=== PATIENT | male | born 1985 | race Caucasian/White ===

== ENCOUNTER 2022-11-15 07:40 | Outpatient (CLI) | payer OTHER, SELFPAY ==
--- NOTE | 2022-11-15 08:00 | CRLHL7_ITS ---
For Patients: As a result of the Century Cures Act, medical imaging exams and procedure reports are released immediately into your electronic medical record. You may view this report before your referring provider. If you have questions, please contact your health care provider. INDICATION: Hematuria. TECHNIQUE: CT abdomen and pelvis urogram without and with 95 cc Isovue 370 contrast. Contrast images were obtained in the nephrographic and delayed phases. COMPARISON: None. FINDINGS: KIDNEYS: The unenhanced images demonstrate no kidney or ureteral stones. The kidneys are normal in caliber and demonstrate normal uptake and excretion of IV contrast. No masses. The renal collecting systems and ureters are symmetrical, normal in caliber, and without evidence of mass or filling defect. URINARY BLADDER: The urinary bladder is normal in caliber and without evidence of mass, wall thickening, or inflammation. OTHER: GI tract is normal in caliber and appearance. The liver is normal in caliber and attenuation. Postop changes cholecystectomy and appendectomy. Spleen, pancreas, and adrenal glands are normal. No mass or adenopathy. Osseous structures normal. Lung bases clear. IMPRESSION: 1. Unremarkable CT urogram. No findings to explain hematuria. 2. No other acute or significant findings. Please note that all CT scans at this facility use dose modulation, iterative reconstruction, and/or weight-based dosing when appropriate to reduce radiation dose to as low as reasonably achievable. Dictated by Luis Morfin MD @ 11/15/2022 2:51:56 PM (Electronically Signed)
== END 2022-11-15 07:41 | disposition home or self-care (01) ==
LOC: CT 07:40
PROVIDERS: PCP Family Medicine; Visit Provider Family Medicine
DX: R31.9 Hematuria, unspecified (principal)
CPT/HCPCS: 74178; Q9967

== ENCOUNTER 2023-01-10 11:30 | Outpatient (CLI) | payer OTHER, SELFPAY | END 2023-01-10 11:31 | disposition home or self-care (01) | PROVIDERS: PCP Family Medicine; Visit Provider Family Medicine | DX: I10 Essential (primary) hypertension (principal); E78.5 Hyperlipidemia, unspecified; Z13.1 Encounter for screening for diabetes mellitus | CPT/HCPCS: 80048; 80061 ==

== ENCOUNTER 2023-09-12 07:29 | Outpatient (CLI) | payer OTHER, SELFPAY | END 2023-09-12 07:30 | disposition home or self-care (01) | LOC: NFLDREF 09-13 07:07 | PROVIDERS: PCP Family Medicine; Referring Provider Family Medicine; Visit Provider Family Medicine | DX: Z00.00 Encounter for general adult medical examination without abnormal findings (principal); E13.9 Other specified diabetes mellitus without complications; Z13.89 Encounter for screening for other disorder | CPT/HCPCS: 87086 ==

== ENCOUNTER 2024-10-22 08:22 | Outpatient (CLI) | payer OTHER, SELFPAY | END 2024-10-22 08:23 | disposition home or self-care (01) | PROVIDERS: PCP Family Medicine; Visit Provider Family Medicine | DX: E78.2 Mixed hyperlipidemia (principal); I10 Essential (primary) hypertension | CPT/HCPCS: 80048; 80061 ==

== ENCOUNTER 2025-04-12 18:40 | Outpatient (CLI) | payer OTHER, SELFPAY | END 2025-04-12 18:41 | disposition home or self-care (01) | LOC: NFLDUCREF 18:42 | PROVIDERS: PCP Family Medicine; Visit Provider Nurse Practitioner Family | DX: R10.9 Unspecified abdominal pain (principal) | CPT/HCPCS: 83036; 87086 ==

== ENCOUNTER 2025-05-31 11:56 | Outpatient (CLI) | payer OTHER, SELFPAY | END 2025-05-31 11:57 | disposition home or self-care (01) | LOC: LKVREF 11:56 | PROVIDERS: PCP Family Medicine; Visit Provider Family Medicine | DX: R10.11 Right upper quadrant pain (principal); R53.83 Other fatigue | CPT/HCPCS: 80076 ==